=== PATIENT | female | born 1945 | race Caucasian/White ===

== ENCOUNTER 2016-12-31 21:34 | Emergency (ER) | payer MEDICARE ==
[2017-05-04] MEDS ORDERED: ASPIRIN CHEWABL81 MG PO (13:41)
[2017-05-04] MEDS ORDERED: PLAVIX75 M1 PO (13:42)
[2017-05-04] MEDS ORDERED: DEPAKOTE SPRIN125 M2 PO (13:42)
[2017-05-04] MEDS ORDERED: DEPAKOTE125 MG PO (13:42)
[2017-05-04] MEDS ORDERED: NEURONTIN100 MG PO (13:43)
[2017-05-04] MEDS ORDERED: PRINIVIL20 MG PO (13:44)
== END 2016-12-31 23:25 ==
LOC: FER 21:34
DX: S20.211A Contusion of right front wall of thorax, initial encounter (principal); W19.XXXA Unspecified fall, initial encounter
CPT/HCPCS: 71020; 71100; 99284